=== PATIENT | female | born 2000 | race Two or more races ===

== ENCOUNTER 2020-02-06 09:10 | Outpatient (CLI) | payer OTHER ==
[2020-02-06] MEDS ORDERED: BACL20TA PO (09:41)
[2020-02-06] MEDS ORDERED: [UNRECOGNIZED DRUG - OTHER] PO (09:41)
[2020-02-06] MEDS ORDERED: GABA600T7 PO (09:41)
[2020-02-06] MEDS ORDERED: TERI14TA PO (09:41)
[2020-02-06] MEDS ORDERED: ETON68IM3 IMPLANT (10:09)
[2020-02-06 10:15] LABS: BASOPHILS # (AUTO) 0.02 x10^3/uL (0-0.1); BASOPHILS % (AUTO) 0 % (0-1); EOSINOPHILS # (AUTO) 0.14 x10^3/uL (0-0.4); EOSINOPHILS % (AUTO) 3 % (1-7); LYMPHOCYTES # (AUTO) 1.48 x10^3/uL (1-3.4); LYMPHOCYTES % (AUTO) 26 % (22-44); MD NO; MEAN CORPUSCULAR HGB CONC 32.1 g/dL (32.4-35.8); MEAN PLATELET VOLUME 7.6 fL (7.4-10.4); MONOCYTES % (AUTO) 7 % (2-9); NEUTROPHILS # (AUTO) 3.57 x10^3/uL (1.8-6.8); NEUTROPHILS % (AUTO) 64 % (42-75); PLATELET COUNT 294 x10^3/uL (130-400); RED BLOOD COUNT 5.39 x10^6/uL (3.82-5.3); RED CELL DISTRIBUTION WIDTH 15.3 % (9.6-15.2)
[2020-02-06 10:21] LABS: MICROSCOPIC NOT IND
[2020-02-06 10:24] LABS: ALANINE AMINOTRANSFERASE 42 U/L (12-78); ALBUMIN 3.6 g/dL (3.4-5.0); CALCIUM 10.2 mg/dL (8.5-10.1)
[2020-02-06 10:27] LABS: ALKALINE PHOSPHATASE 121 U/L (45-117); BILIRUBIN,TOTAL 0.4 mg/dL (0.2-1.0); TOTAL PROTEIN 8.2 g/dL (6.4-8.2)
[2020-02-06 10:32] LABS: ANION GAP 6 mmol/L (5-15); CHLORIDE 108 mmol/L (98-107)
== END 2020-02-06 23:59 | disposition home or self-care (01) ==
LOC: STAR 09:10
PROVIDERS: ATTEND Orthopaedic Surgery Adult Reconstructive Orthopaedic Surgery
DX: Z01.818 Encounter for other preprocedural examination (principal); M87.852 Other osteonecrosis, left femur; M25.552 Pain in left hip
CPT/HCPCS: 36415; 80053; 81003; 85025; 87081; 87147; 93005

== ENCOUNTER 2020-02-10 06:41 | Observation (INO) | payer OTHER, MEDICAID ==
[~2020-02-10] VITALS: Ht 167.6 cm; Wt 82.5 kg
[~2020-02-10 06:41] MED LIST: BACL20TA PO; BUPIVACAINE/PF-EPI 0.5% 1:200K ONE; ETON68IM3 IMPLANT; GABA600T7 PO; NEOSPORIN OINT. PKT 1 PACKET ONE; TERI14TA PO; TRANEXAMIC ACID 100 MG/ML, 10ML ONE; [UNRECOGNIZED DRUG - OTHER] PO
[2020-02-10] MEDS ORDERED: LACTATED RINGERS 1,000 ML IV SCH (07:17)
[2020-02-10] MEDS ORDERED: VANCOMYCIN PER PHARMACY MC STA (07:25)
[2020-02-10] MEDS ORDERED: ACETAMINOPHEN 500 MG TABLET PO ONE (07:30)
[2020-02-10] MEDS ORDERED: LABETALOL 5MG/ML, 20ML IV PRN (07:30)
[2020-02-10] MEDS ORDERED: MEPERIDINE/PF 25MG/0.5ML IVPush PRN (07:30)
[2020-02-10] MEDS ORDERED: HYDROmorphone 1 MG/ML, 1ML INJ IVPush PRN (07:30)
[2020-02-10] MEDS ORDERED: GABAPENTIN 300 MG CAPSULE PO ONE (07:30)
[2020-02-10] MEDS ORDERED: LIDOCAINE-MPF 1%, 2ML INFIL ONE (07:30)
[2020-02-10] MEDS ORDERED: ONDANSETRON 2MG/ML, 2ML IVPush PRN (07:30)
[2020-02-10] MEDS ORDERED: CHLORHEXIDINE 15 ML UDC MM ONE (07:30)
[2020-02-10] MEDS ORDERED: PROMETHAZINE 25 MG/ML, 1ML IVPush PRN (07:30)
[2020-02-10] MEDS ORDERED: FAMOTIDINE 20 MG TABLET PO ONE (07:30)
[2020-02-10] MEDS ORDERED: OXYcodone 5 MG/5 ML ORAL.SOL UDC PO PRN (07:30)
[2020-02-10] MEDS ORDERED: hydrALAzine 20 MG/ML, 1ML IV PRN (07:30)
[2020-02-10] MEDS ORDERED: PROPOFOL 50 ML ONE (07:34)
[2020-02-10] MEDS ORDERED: LIDOCAINE-MPF 1%, 2ML ONE (07:34)
[2020-02-10] MEDS ORDERED: MIDAZOLAM 1 MG/ML, 2ML ONE (07:34)
[2020-02-10] MEDS ORDERED: FENTANYL PF 250 MCG/5ML ONE (07:34)
[2020-02-10 07:45] LABS: HCG UR SG 1.016 (1.003-1.030)
[2020-02-10] MEDS ORDERED: VANCOMYCIN 1,600 MG in SODIUM CHLORIDE 0.9% 250 ML IV ONE (08:00)
[2020-02-10] MEDS ORDERED: CEFAZOLIN 1,000 MG ONE (08:38)
[2020-02-10] MEDS ORDERED: ONDANSETRON 2MG/ML, 2ML ONE (09:12)
[2020-02-10] MEDS ORDERED: PROPOFOL 10 MG/ML, 20ML ONE (09:12)
[2020-02-10] MEDS ORDERED: DEXAMETHASONE 4 MG/ML, 1ML ONE ×2 (09:13)
[2020-02-10] MEDS ORDERED: ROCURONIUM 10MG/ML,5ML ONE (09:13)
[2020-02-10] MEDS ORDERED: FENTANYL PF 100 MCG/2ML ONE ×3 (09:37→10:36)
[2020-02-10] MEDS: FENTANYL PF 100 MCG/2ML IV PRN ×5 (09:41→10:38)
[2020-02-10] MEDS ORDERED: OXYcodone 5 MG/5 ML ORAL.SOL UDC ONE (10:03)
[2020-02-10] MEDS ORDERED: OXYcodone/APAP 5/325MG TABLET PO PRN (12:00)
[2020-02-10] MEDS ORDERED: DIPHENHYDRAMINE 25 MG CAPSULE PO PRN (12:00)
[2020-02-10] MEDS ORDERED: ONDANSETRON ODT 4 MG PO PRN (12:00)
[2020-02-10] MEDS ORDERED: MORPHINE SULFATE 4 MG/ML, 1ML IVPush PRN (12:00)
[2020-02-10] MEDS ORDERED: HYDROcodone/APAP 10/325 MG TABLET PO PRN (12:30)
[2020-02-10] MEDS ORDERED: ACETAMINOPHEN 325 MG TABLET PO PRN (12:30)
[2020-02-10] MEDS ORDERED: HYDROcodone/APAP 5/325 TABLET PO PRN (12:30)
[2020-02-10 13:28] VITALS: BP 113/69
[2020-02-10] MEDS: OXYcodone/APAP 10/325MG TABLET PO PRN ×2 (13:38→17:47)
[2020-02-10] MEDS ORDERED: CEFAZOLIN PMX 2GM/50ML 50 ML IVPB SCH (16:30)
[2020-02-10] MEDS ORDERED: OXYcodone/APAP 10/325MG TABLET ONE ×2 (17:43→21:35)
[2020-02-10] MEDS ORDERED: SODIUM CHLORIDE FLUSH 10ML SYR IVF SCH (21:00)
[2020-02-11] MEDS ORDERED: ASPIRIN 325 MG TABLET EC PO SCH (06:00)
== END 2020-02-10 17:52 | disposition home or self-care (01) ==
LOC: OUT 06:41 → 4NE 11:16 → OUT 11:24 → 4NE 11:24
PROVIDERS: ADMIT Orthopaedic Surgery Adult Reconstructive Orthopaedic Surgery; ATTEND Orthopaedic Surgery Adult Reconstructive Orthopaedic Surgery
DX: Z03.818 Encounter for observation for suspected exposure to other biological agents ruled out (principal); M87.052 Idiopathic aseptic necrosis of left femur; E07.9 Disorder of thyroid, unspecified; F17.200 Nicotine dependence, unspecified, uncomplicated; Z79.899 Other long term (current) drug therapy; Z68.28 Body mass index [BMI] 28.0-28.9, adult
CPT/HCPCS: 27130; 36415; 72170; 81025; 86850; 86900; 87635; 96365; 97161; C1713; C1776; G0378; J0690; J1100; J2250; J2405; J2704; J3010; J3370; J7050; J7120

== ENCOUNTER 2020-05-18 14:23 | Emergency (ER) | payer MEDICAID, OTHER ==
[~2020-05-18] VITALS: Ht 167.6 cm; Wt 80.6 kg
[~2020-05-18 14:23] MED LIST changes: -BUPIVACAINE/PF-EPI 0.5% 1:200K ONE; -NEOSPORIN OINT. PKT 1 PACKET ONE; -TRANEXAMIC ACID 100 MG/ML, 10ML ONE
--- NOTE | 2020-05-18 15:14 | NUR ---
PT CAME IN CO OF RIGHT FLANK PAIN THAT STARTED YESTERDAY. PT DENIES PAINFUL URINATION. STATES HE HARD TO PUT PRESSURE ON HER RIGHT LEG WHEN SHE WALKS. PT AMBULATED TO BATHROOM UNASSISTED TO PROVIDE UA SAMPLE. PT ACCOMPANIED BY MOTHER
[2020-05-18 15:39] LABS: MICROSCOPIC AUTO
[2020-05-18] MEDS ORDERED: OXYcodone/APAP 5/325MG TABLET ONE (17:08)
[2020-05-18 17:10] VITALS: BP 131/74
--- NOTE | 2020-05-18 17:12 | NUR ---
BREAK RN FOR PRIMARY RN MIGUEL Cid PT MEDICATED PER MD ORDER FOR 1010 LOW BACK PAIN. RESTING IN POSITION OF COMFORT. DENIES NEED TO USE RESTROOM. GRANDMOTHER AT BEDSIDE. VSS. CALL LIGHT IN REACH. FALL PRECAUTIONS IN PLACE. A&OX4. NEURO AND CMS INTACT.
--- NOTE | 2020-05-18 17:22 | NUR ---
CHERYL RN. PT TO BE DISCHARGED, REQUESTING TO SPEAK TO DR. FRIAS PRIOR TO D/C REGARDING TREATMENT PLAN AND PAIN MGMT AT HOME, PT WITH MULTIPLE QUESTIONS. DR. FRIAS NOTIFIED, TO SEE PT.
--- NOTE | 2020-05-18 17:41 | NUR ---
BEDSIDE REPORT AND TRANSFER OF CARE BACK TO PRIMARY RN MIGUEL AT THIS TIME.
[2020-05-18] MEDS ORDERED: OXYcodone/APAP 5/325MG TABLET PO ONE (18:00)
== END 2020-05-18 18:34 | disposition home or self-care (01) ==
LOC: ED 15:28
DX: M46.1 Sacroiliitis, not elsewhere classified (principal); M54.5 Low back pain
CPT/HCPCS: 72110; 72170; 81001; 87077; 87086; 99284